=== PATIENT | male | born 1970 | race Two or more races ===

== ENCOUNTER 2018-02-05 08:42 | Emergency (ER) | payer OTHER, BC ==
[~2018-02-05] VITALS: Ht 172.7 cm; Wt 99.3 kg
[2018-02-05] MEDS ORDERED: BP MED (09:20)
[2018-02-05] MEDS ORDERED: HYDR-3240 PO (09:20)
[2018-02-05 09:24] LABS: MICROSCOPIC NOT IND
[2018-02-05 09:28] LABS: CULTURE INDICATED? NO
[2018-02-05 09:43] LABS: BASOPHILS # (AUTO) 0.09 x10^3/uL (0-0.1); BASOPHILS % (AUTO) 1 % (0-1); EOSINOPHILS # (AUTO) 0.46 x10^3/uL (0-0.4); EOSINOPHILS % (AUTO) 6 % (1-7); LYMPHOCYTES # (AUTO) 2.61 x10^3/uL (1-3.4); LYMPHOCYTES % (AUTO) 34 % (22-44); MD NO; MEAN CORPUSCULAR HEMOGLOBIN 29.7 pg (27.5-34.5); MEAN CORPUSCULAR HGB CONC 34.5 g/dL (33.2-36.2); MEAN CORPUSCULAR VOLUME 85.9 fL (81-97); MEAN PLATELET VOLUME 8.5 fL (7.4-10.4); MONOCYTES # (AUTO) 0.54 x10^3/uL (0.2-0.8); MONOCYTES % (AUTO) 7 % (2-9); NEUTROPHILS % (AUTO) 52 % (42-75); PLATELET COUNT 283 x10^3/uL (130-400); RED BLOOD COUNT 5.85 x10^6/uL (4.38-5.82); RED CELL DISTRIBUTION WIDTH 13.4 % (9.4-14.8)
[2018-02-05 09:51] LABS: ALBUMIN 3.6 g/dL (3.4-5.0); ANION GAP 4 mmol/L (5-15); CALCIUM 8.7 mg/dL (8.5-10.1); CHLORIDE 107 mmol/L (98-107); CREATININE 1.14 mg/dL (0.7-1.3)
[2018-02-05 10:19] VITALS: BP 133/99
== END 2018-02-05 11:42 | disposition home or self-care (01) ==
LOC: ED 10:54
DX: N41.0 Acute prostatitis (principal); N45.1 Epididymitis; I10 Essential (primary) hypertension
CPT/HCPCS: 36415; 76870; 80048; 81003; 82040; 85025; 93975; 99285